=== PATIENT | male | born 1950 | race Caucasian/White ===

== ENCOUNTER 2018-06-13 08:33 | Inpatient (IN) | payer MEDICARE, SELFPAY ==
[2018-05-24 11:20] VITALS: BP 126/89; PULSE 64; RESP 16; TEMP 36.9; O2SAT 97; BMI 32.2
[2018-05-24 12:44] LABS: Absolute Lymphocyte Count 1.11 X10^3/ul (0.83-4.51); Absolute Neutrophil Count 4.2 X10^3/uL (2.0-7.7); Basophil# 0.08 X10^3/uL; Basophil% 1.2 % (0-1); Eosinophil# 0.77 X10^3/uL; Eosinophils% 11.2 % (0-5); Hematocrit 39.9 % (40-54); Hemoglobin 13.6 g/dl (13.0-16.5); Lymphocyte # 1.11 X10^3/ul (4.0); Lymphocyte % 16.2 % (19-41); Mean Corp Hgb Conc 34.1 g/gl (32-36); Mean Corpuscular Hgb 30.8 pg (27.0-32.0); Mean Corpuscular Volume 90.3 fL (80-94); Mean Platelet Vol. 10.6 fl (6.2-12.0); Monocyte# 0.68 X10^3/uL; Monocyte% 9.9 % (0-10); Neutrophil % 61.1 % (47-70); Platelet Count 228 K/mm3 (150-450); RBC Distribution Width CV 13.1 % (11.6-14.6); Red Blood Count 4.42 M/mm3 (4.6-6.2); White Blood Count 6.9 K/mm3 (4.4-11.0)
[2018-05-24 12:50] LABS: POSITIVE COUNT NO; POSITIVE DIFFERENTIAL NO; POSITIVE MORPHOLOGY NO
[2018-05-24 12:59] LABS: Anion Gap 6 (5-15); BUN 16 mg/dL (7-18); Chloride 108 mmol/L (98-107); Creatinine, Serum 0.94 mg/dL (0.70-1.30); EST Glomerular Filtration Rate 85 mL/min (>60); Est Glom Filt Rate - Afr Amer 103 mL/min (>60); Glucose 88 mg/dL (74-106); Potassium 4.4 mmol/L (3.5-5.1); Sodium Level 140 mmol/L (136-145)
--- NOTE | 2018-05-28 07:15 | HP.PCM_ITS ---
History and Physical DATE OF SURGERY: 06/13/2018 SCHEDULED PROCEDURE: Right reverse total shoulder arthroplasty HISTORY OF PRESENT ILLNESS: This is a 68-year-old male who has been having ongoing pain in bilateral shoulders for several years. He states the right is worse than the left. Pain can reach as high as a 9 out of 10. His pain is constant, aching, and sharp. Patient has difficulty with activities of daily living that require anything lifting overhead. Pain is over the anterior lateral aspect of the bilateral shoulders. Patient has tried oral medications consisting of Aleve with minimal symptom relief. After failing conservative measures and discussing all treatment options with Dr. Patrice Rizzo, the patient would like to proceed with a right reverse total shoulder arthroplasty. Patient denies any chest pain , shortness of breath, fevers chills, or recent infections. Surgical clearance has been obtained by primary care physician. REVIEW OF SYSTEMS: ROS: Const: Denies change in appetite, fever and weight change. CV: Denies chest pain, heart murmur and irregular heartbeat. Resp: Denies cough, pneumonia, shortness of breath, tuberculosis and wheezing. GI: Denies constipation, diarrhea, heartburn, nausea, rectal itching, bloody stools and vomiting. : . (F Genital Sx) Denies incontinence. Musculo: Reports leg swelling, but denies pain, trouble walking and weakness. Skin: Denies Raynaud's, history of shingles and tattoo. Neuro: Denies ambulatory dysfunction, dizziness, numbness/tingling and tremor. Psych: Denies anxiety, insomnia and stress. Kash/Lymph: Denies anemia, bleeding/bruising tendency and past transfusion. Reviewed, no changes. PAST MEDICAL HISTORY: Advance Care Plan: No Advance Directives Effective Date: 03/16/2018 PMH: Medical Problems: Arthritis, Gout Accidents: None Surgical Hx: Hernia Repair Anesthesia Complications: None Assistive Devices: Glasses Reviewed, no changes. SOCIAL HISTORY: SH: Marital: .Occupation: Retired.Work Status: Retired.Hand Dominance: Right- handed. Personal Habits: Cigarette Use: Former.Alcohol: Daily.Drug Use: Denies Use.Enjoy Exercising: Never Exercises. Reviewed, no changes. VITALS: Ht: 67 Wt: 197lb Wt k.359 BMI: 30.9 BP: 136/85 Pulse: 70 Resp: 16 T: 98.4 T: 36.9C ALLERGIES: No Known Drug Allergy MEDICATIONS: Multi Vitamin 1po qday, Vitamin C 1000 mg 1po qday, Ibuprofen 200 200 mg prn PRE-OP EXAM: General appearance:NORMAL Other: Eyes: Conjunctivae and lids: NORMAL Pupils: ERR Ears, Nose, Mouth, and Throat: NORMAL Other: Inspection of lips, teeth and gums: NORMAL Other: Neck: Examination of neck: no masses noted. Respiratory: Assessment of respiratory effort: NORMAL Other: Auscultation of lungs: clear to auscultation no wheezes, rhonchi or rales. Cardiovascular: Auscultation of heart: regular rate and rhythm, no murmurs, gallops or rubs. Exam of carotid arteries: NORMAL Other: Gastrointestinal: Exam of abdomen: soft, nontender, nondistended bowel sounds present. PHYSICAL EXAMINATION: Examination of the right shoulder is cool to touch without erythema. Range of motion: Active Forward elevation 95, passive range of motion flexion 100. External rotation 10 on the right and internal rotation to L4 on the right. Patient does have scapular dyskinesia. Supraspinatus strength 3+/5 on right. Internal and external rotation 5/5 right. Sensation is intact to light touch. IMAGING STUDIES: X-rays of bilateral shoulders reveal severe glenohumeral osteoarthritis bilaterally. There are large humeral and glenoid osteophytes bilaterally. There is humeral head flattening bilateral. There is posterior wear of the glenoid bilaterally. IMPRESSION: 1. Severe bilateral shoulder glenohumeral osteoarthritis 2. History of gout PLAN: Dr. Rizzo did discuss and review with the patient all treatment options including surgical versus nonsurgical options. Patient does wish to proceed with the above-stated procedure. Potential risks, benefits, and complications of the procedure were discussed in detail including but not limited to , infection, nerve and blood vessel damage, persistent pain, numbness, tingling, paresthesias, blood clot, pulmonary embolism, and requirement for possible further surgery. The patient expressed full understanding and has no further questions for the doctor. Patient does agree to proceed with the above-stated procedure and has signed the surgery consent form. ___ I have re-examined the patient. There are no clinical changes since date of exam. ___ See progress notes for changes. ___ Dictated on admission Date: Time: Signature:
[2018-06-13] VITALS (10 sets, daily range): BP systolic 101–134; BP diastolic 71–91; PULSE 57–85; RESP 14–16; TEMP 35.8–36.6; O2SAT 93–100; BMI 32.2
--- NOTE | 2018-06-13 07:06 | RAD_ITS ---
STUDY: X-RAY - RIGHT SHOULDER REASON FOR EXAM: Male, 68 years old. Status post right shoulder surgery TECHNIQUE: 1 view(s) of the shoulder. COMPARISON: None. FINDINGS: There is postoperative change from right shoulder total arthroplasty. Components are in normal alignment. No periinstrumentation lucency. Right acromioclavicular joint is in normal alignment demonstrates mild degenerative spurring. Normal acromion. Visualized humerus, clavicle, scapula are otherwise unremarkable Subcutaneous gas is noted in the postoperative bed. Normal visualized right upper ribs and pulmonary apex. RAD/Shoulder One View IMPRESSION: Postoperative change from right total shoulder arthroplasty with no evidence of instrumentation failure. Electronically Signed: Wesley Esqueda MD at 3:57 EDT Tel , Service support ,
[2018-06-13] MEDS: Acetaminophen 500 MG Tablet 1000 MG PO ×3 (09:25→21:08)
[2018-06-13] MEDS: Celecoxib 200 MG Capsule 400 MG PO (09:26)
[2018-06-13] MEDS: oxyCODONE HCl Cr 10 MG Tablet PO (09:27)
[2018-06-13] MEDS: Lactated Ringers 1,000 ML 999 ML IV (10:00)
--- NOTE | 2018-06-13 10:15 | OP.PCM_ITS ---
Report of Operation Date of Procedure: 06/13/18 Pre-Operative Diagnosis: Right shoulder cuff tear arthropathy Post-Operative Diagnosis: Right shoulder cuff tear arthropathy Surgery/Procedure Performed:: Right reverse total shoulder replacement Description of Surgical Findings:: Stable shoulder chemical processing laborer: Geoffrey Zeng Type of Anesthesia:: General/Regional Anesthesiologist: Cem Smith Special Medications: 2 g Ancef, 1 g TXA at incision, 1 g TXA closure, 10 mg Decadron, joint cocktail (5 mg Duramorph, 30 mL of 0.5% Ropivicaine, 1000 units of epinephrine, 30 mg of Toradol) Specimen's removed: Bony cuts Estimated Blood Loss (mL): 200 mL Fluids Replaced: 1500 mL crystalloid Description of Procedure: Components used 1. Equinox 8? posterior glenoid baseplate from [employer] for reverse TSA 2. Equinox 38, +6 mm Glenosphere 3. Equinox 38mm, 0mm humeral liner 4. Equinox reverse TSA humeral adapter tray 0mm 5. Equinox humeral stem preserve press-fit 10mm size Brief history/Operative indications: 68 yo M with history of R shoulder pain and cuff tear arthropathy. Patient failed conservative measures as mentioned in the H&P. After discussion of risk and benefits of reverse total shoulder replacement including but not limited to blood loss, DVTs, PEs, nerve vessel damage, infection, general risk of anesthesia including loss of life, instability and stiffness patient demonstrating understanding wish to proceed was able to sign informed consent. Medical clearance was obtained. Procedure: On the date of the procedure, patient's R upper extremity was marked in the preoperative area. Patient was taken back to the operating room where they were placed on the table in the supine position. Anesthesia assumed control of the C-spine and airway, then administered anesthetic. All bony prominences were identified well-padded, the head was secured and the patient was placed in the beachchair position at about 35? inclination. Anesthesia remained in control of the C-spine airway throughout the remainder of the procedure. Patient was then appropriately fastened to the table and the R upper extremity was prepped in a sterile fashion. The surgeons then scrubbed. Upon reentering the room, the R upper extremity was draped in a sterile fashion and the incision was marked out. Timeout was called, everyone agreed upon the side, the site, the procedure to be performed, patient identity and antibiotics given. Incision was taken down through skin and subcutaneous tissue, fat down to fascia. The stripe of the deltopectoral interval and cephalic vein were identified and blunt dissection was used to retract the deltoid. The cephalic vein was retracted laterally. Clavipectoral fascia was then incised and a cobra retractor was placed in the wound. The proximal one third of the pectoralis major insertion was released. Pectoralis tendon insertion was used to tenodesed the biceps tendon which was identified in the bicipital groove. Tenodesis was done with #1 Vicryl. Proximally we followed the biceps tendon after transecting it into the rotator interval. The rotator interval was split and the arm was externally rotated. The split was 1 cm medial to the bicipital groove. Subscapularis tendon was released. We released down the anterior portion of the humeral head and a warner elevator was used to release the inferior portion of the humeral head. The arm was externally rotated and the shoulder was dislocated. The [employer] humeral head cutting guide was used to make humeral cut. This was done at 20? retroversion. Once his humeral head cut was made humerus was retracted out of the way and the glenoid was exposed. After exposing the glenoid, the labrum and the remaining proximal biceps were debrided. At this time we are able to view the entire outer edge of the glenoid. A central pin was placed we sequentially reamed over this central pin to 38mm. Once this was completed the central pedicle was drilled. The glenoid baseplate was impacted into place. Wound was closely irrigated out with normal saline we then drilled sequentially for 4 screws. Screws were placed superiorly and inferiorly and tightened down the screws. Then anteriorly and posteriorly. Once the screws were appropriately tightened into place the glenoid baseplate was compressed against the exposed subchondral bone. Locking caps were placed and a 38, +6mm glenosphere was impacted into place engaging the De Luna taper. The central screw was then tightened into place. Attention was then turned towards the humerus. The humerus was again externally rotated exposing the proximal portion of the humerus. Central canal finder was then used to open up the canal. We then broached to a 10mm stem. We trialed the 0mm liner, with the 0mm humeral baseplate. We obtained an adequate reduction at this time with a nice stable shoulder. Good internal rotation to the gluteus, forward elevation to 140?, external rotation to 20?. Final components were then assembled on the back table, trials were removed and the wound was copiously irrigated with normal saline after dislocating the shoulder. Once the final components were assembled they were impacted into place. Shoulder was then reduced and found to be stable with good range of motion. Subscapularis tendon was not repairable. The wound was then copiously irrigated out with a 1 L normal saline lavage. The deltopectoral fascia was then closed using #1 Vicryl skin was closed using 2-0 Vicryl interrupted sutures and final skin closure was done with 3-0 Monocryl. Steri-Strips are placed for final skin closure. Sterile dressing was placed patient was then placed in a sling and awakened by anesthesia. Patient was then transferred to the PACU for recovery. Postoperative plan: Patient will be admitted to the hospital overnight. They will get physical therapy starting in 2 weeks with normal postoperative regimen. Patient will be placed on 325 mg aspirin daily for DVT prophylaxis. The first postoperative appointment will be in 2 weeks for wound check and initiation of phase 1 physical therapy. During the course of the procedure the physician assistant softball coach played a vital role. His intimate knowledge of my steps in the procedure aided in safe and expedient completion of the procedure. The PA played a vital rolls in positioning particularly in obtaining the appropriate beach chair position and securing the patient's body and head to the table. The PA was also vital in the retraction of soft tissues during the exposure and especially the glenoid work as this is a vital part of the procedure to prevent neurovascular damage. the PA was also vital and protecting soft tissues during times of bony cuts and reaming. He also played a vital role in closure with my direct supervision. The PA was also important during reduction and dislocation of the joint and trials intraoperatively. Grafts/Implants Used: [employer] Equinox preserve stem - Complications NONE - Admit VTE Documentation VTE Present on Admission: No VTE Mechan Device Prophylaxis: SCD's, Thigh High DAGOBERTO Hose VTE Pharm Prophylaxis ordered?: Yes
[2018-06-13] MEDS: Cefazolin 2 GM in 0.9% Normal Saline 100 ML IV (10:17)
[2018-06-13] MEDS: Ondansetron 4 MG/2 ML Vial (12:02)
[2018-06-13] MEDS: Lactated Ringers 1,000 ML 125 ML IV (18:12)
[2018-06-13] MEDS: Cefazolin 1 GM/50 ML BAG IV (18:21)
[2018-06-14 03:10] VITALS: BP 92/63; PULSE 84; RESP 16; TEMP 36.7; O2SAT 92
[2018-06-14] MEDS: Cefazolin 1 GM/50 ML BAG IV (03:17)
[2018-06-14] MEDS: Lactated Ringers 1,000 ML 125 ML IV (03:17)
[2018-06-14 06:04] VITALS: BP 99/69
[2018-06-14] MEDS: Acetaminophen 500 MG Tablet 1000 MG PO ×2 (06:07→13:53)
--- NOTE | 2018-06-14 07:00 | PN.ORTHO_ITS ---
Subjective: Patient resting in bed upon examination. Patient denies any CP, SOB, dizziness , lightheadedness, or N/V. Patient states pain is controlled on medications. No adverse overnight events. Patient wishes to try and go home today after physical therapy. Objective: VSS, Afebrile Sensation intact to axillary, radial, median, and ulnar nerve. Motor intact to AIN, PIN, and ulnar nerve Dressing with drainage over middle 11/16, no reason to change at this point Ultra sling fitting appropriately - Physical Exam General: Alert, Oriented x3, Cooperative, No apparent distress Vital Signs Temp Pulse Resp BP Pulse Ox 98.1 F 84 16 99/69 92 06/14/18 03:10 06/14/18 03:10 06/14/18 03:10 06/14/18 06:04 06/14/18 03:10 Oxygen Delivery Method Room Air Weight: 99 kg Body Mass Index (BMI) 32.2 Intake and Output for Last 24 Hours 06/12/18 06/13/18 06/14/18 23:59 23:59 23:59 Intake Total 1955 1754 / 175 Balance 1955 175 / 1753 Medical Necessity - Tobacco Use Smoking Status: Former smoker Tobacco Use: Cigarettes Assessment/Plan 1. S/P Right reverse total shoulder arthroplasty POD#1 2. Cont pain medications: oxyir and tylenol 3. DVT prophylaxis: aspirin 325 mg daily for 2 weeks 4. Physical therapy: okay for ROM of the elbow/wrist/hand. Okay for pendulum exercises. No ROM right shoulder. Will begin outpatient physical therapy after 2 weeks post-op visit 5. Encouraged incentive spirometry 6. Disposition: plan is for discharge home today if pain is controlled and tolerated physical therapy. Prescriptions are attached to chart. Patient will follow up per post-op instructions.
--- NOTE | 2018-06-14 07:08 | PCM.DC.ORTHO ---
Discharge Diet: No Restrictions Discharge Activity: May Not Drive May shower in (days): 1 - turn dressing away from water Ice area for (Minutes): 20 - every 1-2 hours while awake Weight Bearing Status: No weight bearing - right upper extremity Keep extremity elevated above heart level: Operative Extremity Call your doctor if your incision/area has: Continuous Slow Oozing, Sudden Increased Bleeding, Increased Pain/ Swelling, Increased Redness, Foul Smelling Discharge Call your doctor if you observe: Fever of 101 or Higher, Coldness, Increased Pain, Numbness or Tingling, Change in Color Remove Dressing in (days):: 4 - okay to remove on 06/18/18 Additional Instructions: follow [facility] post-op instructions Allergies/Adverse Reactions: Allergies No Known Allergies Allergy (Verified 06/13/18 09:01) Medications to take at Discharge Ascorbic Acid [Vitamin C] 500 mg PO DAILY@0800 05/24/18 Multivitamin [Daily Multiple Vitamin] 1 each PO DAILY 05/24/18 Acetaminophen [Tylenol] 1,000 mg PO Q8 #90 tab 06/14/18 Aspirin 325 mg PO DAILY@0800 #14 tab 06/14/18 Famotidine [Pepcid] 20 mg PO DAILY #14 tab 06/14/18 Oxycodone [Oxyir] 5 - 10 mg PO Q4H PRN PRN 5 Days #60 tablet 06/14/18 Senna/Docusate Sodium [Senokot-S] 2 tab PO BID PRN PRN #20 tab 06/14/18 The following prescriptions were given: Oxycodone [Oxyir] 5 - 10 mg PO Q4H PRN PRN 5 Days #60 tablet PRN Reason: Pain Acetaminophen [Tylenol] 1,000 mg PO Q8 #90 tab Aspirin 325 mg PO DAILY@0800 #14 tab Famotidine [Pepcid] 20 mg PO DAILY #14 tab Senna/Docusate Sodium [Senokot-S] 2 tab PO BID PRN PRN #20 tab PRN Reason: Constipation Primary Care Physician: Eugenia Gracia MD [Primary Care Provider] - Test Results: Test results from this visit will be discussed in further detail at your follow-up appointment, if applicable. Please Follow Up With: Geoffrey Zeng PA-C When: 06/26/18 @ 10:00 am Please Follow Up With: Ana Wilburn Physical therapy
[2018-06-14] MEDS: Famotidine 20 MG Tablet PO (08:34)
[2018-06-14] MEDS: Aspirin 325 MG Tablet PO (08:34)
[2018-06-14] MEDS: Multivitamins,Therapeutic Tablet 1 TABLET PO (08:34)
[2018-06-14] MEDS: Ascorbic Acid 500 MG Tablet PO (08:34)
[2018-06-14] MEDS: oxyCODONE 5 MG Tablet PO (08:48)
[2018-06-14 09:10] VITALS: BP 116/75; PULSE 64; RESP 16; TEMP 36.4; O2SAT 96
[2018-06-14 13:56] VITALS: BP 123/71; PULSE 65; RESP 16; TEMP 36.4; O2SAT 98
--- NOTE | 2018-06-15 16:10 | CASEMGMT ---
Late entry for 06/14 1200 RN CM Assessment: [id number] assessment performed. Pt alert, willing and able to participate. Confirmed pt's address, PCP, and pharmacy ([facility] in [place]). Pt states he plans to return home at discharge and will receive assistance from his . He lives in the basement of his daughter's home. There are steps to the basement but there is an outside entrance available that would not require him to use stairs. Pt's daughter is a nurse and will also be available to assist if needed. Pt has outpt PT scheduled at [facility] on 06/26. His will be available to transport him to his follow-up and PT appointments. Pt denies any discharge needs. Plan: Home with assist of family and outpt PT. Melly Vega RN
== END 2018-06-14 14:10 | disposition home or self-care (01) | DRG 483 ==
PROVIDERS: Admitting Provider Specialist; Visit Provider Specialist
PROC: 0RRJ00Z Replacement of Right Shoulder Joint with Reverse Ball and Socket Synthetic Substitute, Open Approach (ICD-10-PCS; CPT 23472; principal; 2018-06-13 10:30)
DX: M19.011 Primary osteoarthritis, right shoulder (principal); M19.012 Primary osteoarthritis, left shoulder; M10.9 Gout, unspecified; Z79.82 Long term (current) use of aspirin; Z87.891 Personal history of nicotine dependence
CPT/HCPCS: 36415; 73020; 80048; 85025; 87081; 97166; 97530; C1776; J7040; J7120; J2405

== ENCOUNTER 2018-09-19 06:15 | Inpatient (IN) | payer MEDICARE, SELFPAY ==
[2018-09-08 11:05] VITALS: BP 116/80; PULSE 60; RESP 16; TEMP 36.6; O2SAT 98; BMI 31.8
[2018-09-08 11:45] LABS: Absolute Lymphocyte Count 0.99 X10^3/ul (0.83-4.51); Absolute Neutrophil Count 3.4 X10^3/uL (2.0-7.7); Basophil# 0.05 X10^3/uL; Basophil% 0.8 % (0-1); Eosinophil# 0.91 X10^3/uL; Eosinophils% 15.4 % (0-5); Hematocrit 40.2 % (40-54); Hemoglobin 13.2 g/dl (13.0-16.5); Lymphocyte # 0.99 X10^3/ul (4.0); Lymphocyte % 16.8 % (19-41); Mean Corp Hgb Conc 32.8 g/gl (32-36); Mean Corpuscular Hgb 29.7 pg (27.0-32.0); Mean Corpuscular Volume 90.3 fL (80-94); Mean Platelet Vol. 10.6 fl (6.2-12.0); Monocyte# 0.57 X10^3/uL; Monocyte% 9.6 % (0-10); Neutrophil # 3.38 X10^3/uL (2.7-7.7); Neutrophil % 57.2 % (47-70); Platelet Count 253 K/mm3 (150-450); RBC Distribution Width CV 13.6 % (11.6-14.6); RBC Distribution Width SD 44.3 fl (35.1-43.9); Red Blood Count 4.45 M/mm3 (4.6-6.2); White Blood Count 5.9 K/mm3 (4.4-11.0)
[2018-09-08 11:47] LABS: POSITIVE COUNT NO; POSITIVE DIFFERENTIAL NO; POSITIVE MORPHOLOGY NO
[2018-09-08 11:53] LABS: Anion Gap 8 (5-15); BUN 13 mg/dL (7-18); BUN/Creat Ratio 14.5 RATIO (10-20); Calcium,Total 9.2 mg/dL (8.5-10.1); Chloride 107 mmol/L (98-107); Creatinine, Serum 0.89 mg/dL (0.70-1.30); EST Glomerular Filtration Rate 90 mL/min (>60); Est Glom Filt Rate - Afr Amer 109 mL/min (>60); Estimated Creatinine Clearance 76.33 ml/min; Glucose 91 mg/dL (74-106); Potassium 4.2 mmol/L (3.5-5.1); Sodium Level 140 mmol/L (136-145)
--- NOTE | 2018-09-11 08:04 | HP.PCM_ITS ---
History and Physical DATE OF SURGERY: 09/19/2018 SCHEDULED PROCEDURE: Left Reverse Total Shoulder Arthroplasty HISTORY OF PRESENT ILLNESS: This is a 68-year-old male who has been having ongoing bilateral shoulder pain for several years duration. Patient recently underwent a right reverse total shoulder arthroplasty on June 13, 2018. He is doing very well with regards to his right shoulder. Patient continues to have pain in his nondominant left shoulder. Pain can reach as high as a 9/10. He has difficult time with activities of daily living that require any overhead activity or lifting. Pain is over the lateral/anterior shoulder. Pain does occasionally wake him at night. He has difficult time and reduced ability with activities of daily living due to his range of motion and pain. Patient has been through formal physical therapy for his right shoulder that he worked on exercises on his left but continues to have pain. She has tried pyfr-[id number] anti-inflammatories without any relief in symptoms. X-rays of the left shoulder reveal severe glenohumeral osteoarthritis. Patient has medical history pertinent for gout. Patient denies any recent chest pain, shortness of breath, fevers chills, recent infections. After failing conservative measures and discussing all treatment options with Dr. Patrice Rizzo, the patient would like to proceed with a left reverse total shoulder arthroplasty. REVIEW OF SYSTEMS: ROS: Const: Denies change in appetite, fever and weight change. CV: Denies chest pain, heart murmur and irregular heartbeat. Resp: Denies cough, pneumonia, shortness of breath, tuberculosis and wheezing. GI: Denies constipation, diarrhea, heartburn, nausea, rectal itching, bloody stools and vomiting. : Denies incontinence. Musculo: Reports leg swelling, but denies pain, trouble walking and weakness. Skin: Denies Raynaud's, history of shingles and tattoo. Neuro: Denies ambulatory dysfunction, dizziness, numbness/tingling and tremor. Psych: Denies anxiety, insomnia and stress. Kash/Lymph: Denies anemia, bleeding/bruising tendency and past transfusion. Reviewed, no changes. PAST MEDICAL HISTORY: Advance Care Plan: No Advance Directives Effective Date: 03/16/2018 PMH: Medical Problems: Arthritis, Gout Accidents: None Surgical Hx: Hernia Repair RT Reverse Total Shoulder - (06/13/2018) [email or web address] Anesthesia Complications: None Assistive Devices: Glasses Reviewed, no changes. SOCIAL HISTORY: SH: Marital: .Occupation: Retired.Work Status: Retired.Hand Dominance: Right- handed. Personal Habits: Cigarette Use: Former.Alcohol: Daily.Drug Use: Denies Use.Enjoy Exercising: Never Exercises. Reviewed, no changes. VITALS: Ht: 67 Wt: 204lb Wt k.534 BMI: 31.9 BP: 132/82 Pulse: 67 Resp: 16 T: 97.7 T: 36.5C ALLERGIES: No Known Drug Allergy MEDICATIONS: Multi Vitamin 1po qday, Vitamin C 1000 mg 1po qday PRE-OP EXAM: General appearance:NORMAL Other: Eyes: Conjunctivae and lids: NORMAL Pupils: ERR Ears, Nose, Mouth, and Throat: NORMAL Other: Inspection of lips, teeth and gums: NORMAL Other: Neck: Examination of neck: no masses noted. Respiratory: Assessment of respiratory effort: NORMAL Other: Auscultation of lungs: clear to auscultation no wheezes, rhonchi or rales. Cardiovascular: Auscultation of heart: regular rate and rhythm, no murmurs, gallops or rubs. Exam of carotid arteries: NORMAL Other: Gastrointestinal: Exam of abdomen: soft, nontender, nondistended bowel sounds present. PHYSICAL EXAMINATION: Left shoulder is cool to touch without erythema. Patient has tenderness to palpation of the anterior/lateral left shoulder. Range of motion left shoulder: Active flexion 80, passive flexion 85, external rotation on the left neutral, internal rotation on the left L4. Patient does have scapular dyskinesia. 4/5 supraspinatus, external rotation 5/5. Sensation intact to light touch. Neurovascularly intact. IMAGING STUDIES: X-rays from March 16, 2018 of the left shoulder reveals severe glenohumeral osteoarthritis. There is large humeral and glenoid osteophytes. There is humeral head flattening. There is significant retroversion on the left. IMPRESSION: 1. Severe left shoulder glenohumeral osteoarthritis 2. Three-month status post right reverse total shoulder arthroplasty 3. Gout PLAN: Dr. Patrice Rizzo did discuss and review with the patient all treatment options including surgical versus nonsurgical options. Patient does wish to proceed with the above-stated procedure. Potential risks, benefits, and complications of the procedure were discussed in detail including but not limited to , infection, nerve and blood vessel damage, persistent pain, numbness, tingling, paresthesias, blood clot, pulmonary embolism, and requirement for possible further surgery. The patient expressed full understanding and has no further questions for the doctor. Patient does agree to proceed with the above-stated procedure and has signed the surgery consent form. This dictation was created using voice recognition software. Phonetic and/or grammatical errors may exist.. ___ I have re-examined the patient. There are no clinical changes since date of exam. ___ See progress notes for changes. ___ Dictated on admission Date: Time: Signature:
[2018-09-19] VITALS (11 sets, daily range): BP systolic 111–143; BP diastolic 76–89; PULSE 57–88; RESP 16–18; TEMP 36.2–37.2; O2SAT 92–99; BMI 31.8
[2018-09-19] MEDS: Celecoxib 200 MG Capsule 400 MG PO (07:09)
[2018-09-19] MEDS: Acetaminophen 500 MG Tablet 1000 MG PO ×3 (07:10→22:07)
[2018-09-19] MEDS: Cefazolin 2 GM in 0.9% Normal Saline 100 ML IV (07:33)
--- NOTE | 2018-09-19 09:09 | OP.PCM_ITS ---
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 Post-Operative Diagnosis: Severe left shoulder osteoarthritis with B2 posterior glenoid wear Surgery/Procedure Performed:: Left reverse total shoulder replacement Description of Surgical Findings:: Stable shoulder dairy bar manager: Geoffrey Zeng Type of Anesthesia:: General Anesthesiologist: Cem Smith Special Medications: 2 g Ancef, 1 g TXA at incision, 1 g TXA closure, 10 mg Decadron, joint cocktail (5 mg Duramorph, 30 mL of 0.5% Ropivicaine, 1000 units of epinephrine, 30 mg of Toradol), 1 g vancomycin IV throughout the case Specimen's removed: Bony cuts Estimated Blood Loss (mL): 200 ml Fluids Replaced: 1700 mL crystalloid Description of Procedure: Components used 1. Equinox a degree glenoid baseplate from [employer] for reverse TSA 2. Equinox 38, +4mm Glenosphere 3. Equinox 38 mm, 0mm humeral liner 4. Equinox reverse TSA humeral adapter tray 0mm 5. Equinox humeral stem preserve press-fit 10mm size Brief history/Operative indications: 68 yo m with history of L shoulder pain and severe osteoarthritis with glenoid B2 wear. Patient failed conservative measures as mentioned in the H&P. After discussion of risk and benefits of reverse total shoulder replacement including but not limited to blood loss, DVTs, PEs, nerve vessel damage, infection, general risk of anesthesia including loss of life, instability and stiffness patient demonstrating understanding wish to proceed was able to sign informed consent. Medical clearance was obtained. Procedure: On the date of the procedure, patient's L upper extremity was marked in the preoperative area. Patient was taken back to the operating room where they were placed on the table in the supine position. Anesthesia assumed control of the C-spine and airway, then administered anesthetic. All bony prominences were identified well-padded, the head was secured and the patient was placed in the beachchair position at about 35? inclination. Anesthesia remained in control of the C-spine airway throughout the remainder of the procedure. Patient was then appropriately fastened to the table and the L upper extremity was prepped in a sterile fashion. The surgeons then scrubbed. Upon reentering the room, the L upper extremity was draped in a sterile fashion and the incision was marked out. Timeout was called, everyone agreed upon the side, the site, the procedure to be performed, patient identity and antibiotics given. Incision was taken down through skin and subcutaneous tissue, fat down to fascia. The stripe of the deltopectoral interval and cephalic vein were identified and blunt dissection was used to retract the deltoid. The cephalic vein was retracted laterally. Clavipectoral fascia was then incised and a cobra retractor was placed in the wound. The proximal one third of the pectoralis major insertion was released. Pectoralis tendon insertion was used to tenodesed the biceps tendon which was identified in the bicipital groove. Tenodesis was done with #1 Vicryl. Proximally we followed the biceps tendon after transecting it into the rotator interval. The rotator interval was split and the arm was externally rotated. The split was 1 cm medial to the bicipital groove. Subscapularis tendon was released. We released down the anterior portion of the humeral head and a warner elevator was used to release the inferior portion of the humeral head. The arm was externally rotated and the shoulder was dislocated. The [employer] humeral head cutting guide was used to make humeral cut. This was done at 20? retroversion. Once his humeral head cut was made humerus was retracted out of the way and the glenoid was exposed. After exposing the glenoid, the labrum and the remaining proximal biceps were debrided. At this time we are able to view the entire outer edge of the glenoid. A central pin was placed we sequentially reamed over this central pin to 38mm. Once this was completed the central pedicle was drilled. The glenoid baseplate was impacted into place. Wound was closely irrigated out with normal saline we then drilled sequentially for 4 screws. Screws were placed superiorly and inferiorly and tightened down the screws. Then anteriorly and posteriorly. Once the screws were appropriately tightened into place the glenoid baseplate was compressed against the exposed subchondral bone. Locking caps were placed and a 38, +4mm glenosphere was impacted into place engaging the De Luna taper. The central screw was then tightened into place. Attention was then turned towards the humerus. The humerus was again externally rotated exposing the proximal portion of the humerus. Central canal finder was then used to open up the canal. We then broached to a 10mm stem. We trialed the 0mm liner, with the 0mm humeral baseplate. We obtained an adequate reduction at this time with a nice stable shoulder. Good internal rotation to the gluteus, forward elevation to 140?, external rotation to 20?. Final components were then assembled on the back table, trials were removed and the wound was copiously irrigated with normal saline after dislocating the shoulder. Once the final components were assembled they were impacted into place. Shoulder was then reduced and found to be stable with good range of motion. Subscapularis tendon was not repairable. The wound was then copiously irrigated out with a 1 L normal saline lavage. The deltopectoral fascia was then closed using #1 Vicryl skin was closed using 2-0 Vicryl interrupted sutures and final skin closure was done with 3-0 Monocryl. Steri-Strips are placed for final skin closure. Sterile dressing was placed patient was then placed in a sling and awakened by anesthesia. Patient was then transferred to the PACU for recovery. Postoperative plan: Patient will be admitted to the hospital overnight. They will get physical therapy starting in 2 weeks with normal postoperative regimen. Patient will be placed on 325 mg aspirin daily for DVT prophylaxis. The first postoperative appointment will be in 2 weeks for wound check and initiation of phase 1 physical therapy. During the course of the procedure the physician customer care assistant played a vital role. His intimate knowledge of my steps in the procedure aided in safe and expedient completion of the procedure. The PA played a vital rolls in positioning par ticularly in obtaining the appropriate beach chair position and securing the patient's body and head to the table. The PA was also vital in the retraction of soft tissues during the exposure and especially the glenoid work as this is a vital part of the procedure to prevent neurovascular damage. the PA was also vital and protecting soft tissues during times of bony cuts and reaming. He also played a vital role in closure with my direct supervision. The PA was also important during reduction and dislocation of the joint and trials intraoperatively. Grafts/Implants Used: [employer] Equinox preserve - Complications None - Admit VTE Documentation VTE Present on Admission: No VTE Mechan Device Prophylaxis: SCD's, Knee High DAGOBERTO Hose VTE Pharm Prophylaxis ordered?: Yes
--- NOTE | 2018-09-19 09:55 | RAD_ITS ---
STUDY: X-RAY - LEFT SHOULDER REASON FOR EXAM: Male, 68 years old. The patient is status post shoulder replacement. TECHNIQUE: Single frontal view(s) of the shoulder. COMPARISON: None. FINDINGS: The patient is status post reverse shoulder replacement. There is good alignment. Postoperative soft tissue changes. RAD/Shoulder One View IMPRESSION: Status post left shoulder replacement. There is good alignment. Postoperative soft tissue changes. Electronically Signed: Bola Morales MD at 11:26 EST Tel [phone], Service support ,
[2018-09-19] MEDS: Lactated Ringers 1,000 ML 125 ML IV ×2 (10:51→20:11)
[2018-09-19] MEDS: Famotidine 20 MG Tablet PO (11:34)
[2018-09-19] MEDS: oxyCODONE 5 MG Tablet PO ×2 (13:48→22:09)
[2018-09-19] MEDS: Cefazolin 1 GM/50 ML BAG IV ×2 (17:11→23:41)
[2018-09-20 02:26] VITALS: BP 110/74; PULSE 84; RESP 16; TEMP 37.2; O2SAT 95
[2018-09-20] MEDS: Acetaminophen 500 MG Tablet 1000 MG PO ×2 (05:57→13:25)
[2018-09-20] MEDS: oxyCODONE 5 MG Tablet PO ×2 (06:00→13:24)
--- NOTE | 2018-09-20 07:00 | PN.ORTHO_ITS ---
Subjective: The patient was sitting in bed upon examination. Patient denies any chest pain, shortness of breath, dizziness, lightheadedness, nausea or vomiting, or calf pain. Pain is controlled on medications. No adverse overnight events. Overall patient is doing well. Plan is for discharge home today. Objective: Dressing is C/D/I Ultra-sling fitting appropriately Sensation intact to axillary, radial, median, and ulnar distribution Motor intact to AIN, PIN, and ulnar nerve - Physical Exam General: Alert, Oriented x3, Cooperative, No apparent distress Vital Signs Temp Pulse Resp BP Pulse Ox 98.9 F 84 16 110/74 95 09/20/18 02:26 09/20/18 02:26 09/20/18 02:26 09/20/18 02:26 09/20/18 02:26 Oxygen Delivery Method Room Air Weight: 92.3 kg Body Mass Index (BMI) 31.8 Intake and Output for Last 24 Hours 09/18/18 09/19/18 09/20/18 23:59 23:59 23:59 Intake Total 4301 / 4301 363 / 363 Output Total 400 / 400 Balance 3901 / 3901 363 / 363 Medical Necessity - Tobacco Use Smoking Status: Former smoker Tobacco Use: Cigarettes Assessment/Plan 1. S/P left reverse total shoulder arthroplasty POD #1 2. Continue Pain Medications: Tylenol and oxycodone 3. DVT Prophylaxis: Aspirin 325 mg daily for 2 weeks postoperatively 4. PT/OT: No range of motion left shoulder, okay to work on elbow/wrist/hand range of motion. Okay for pendulum exercise. Will begin outpatient physical therapy after 2-week follow-up at [facility]. 5. Encouraged Incentive Spirometry 6. Disposition: Plan is for discharge home today. Prescriptions will be E scribed to [facility]. Patient will follow-up per postop instructions..
--- NOTE | 2018-09-20 07:08 | PCM.DC.ORTHO ---
Discharge Diet: No Restrictions Discharge Activity: May Not Drive May shower in (days): 1 - Turned dressing away from water Ice area for (Minutes): 20 - Ice area for 20 minutes each hour while awake Weight Bearing Status: No weight bearing - Left upper extremity Keep extremity elevated above heart level: Operative Extremity Call your doctor if your incision/area has: Continuous Slow Oozing, Sudden Increased Bleeding, Increased Pain/ Swelling, Increased Redness, Foul Smelling Discharge Call your doctor if you observe: Fever of 101 or Higher, Coldness, Increased Pain, Numbness or Tingling, Change in Color Remove Dressing in (days):: 4 - Okay to remove dressing on September 24, 2018 Additional Instructions: Follow [facility] postop instructions Allergies/Adverse Reactions: Allergies No Known Allergies Allergy (Verified 09/08/18 11:02) Medications to take at Discharge Ascorbic Acid [Vitamin C] 500 mg PO DAILY@0800 05/24/18 Multivitamin [Daily Multiple Vitamin] 1 each PO DAILY 05/24/18 Acetaminophen [Tylenol] 1,000 mg PO Q8 #90 tablet 09/20/18 Aspirin 325 mg PO DAILY@0800 #14 tablet 09/20/18 Famotidine [Pepcid] 20 mg PO DAILY #14 tablet 09/20/18 Meloxicam [Mobic] 7.5 mg PO BID #30 tablet 09/20/18 Oxycodone [Oxyir] 5 - 10 mg PO Q4H PRN PRN 5 Days #60 tablet 09/20/18 Senna/Docusate Sodium [Senokot-S] 2 tablet PO BID PRN PRN #20 tablet 09/20/18 The following prescriptions were given: Oxycodone [Oxyir] 5 - 10 mg PO Q4H PRN PRN 5 Days #60 tablet PRN Reason: Pain Acetaminophen [Tylenol] 1,000 mg PO Q8 #90 tablet Aspirin 325 mg PO DAILY@0800 #14 tablet Famotidine [Pepcid] 20 mg PO DAILY #14 tablet Senna/Docusate Sodium [Senokot-S] 2 tablet PO BID PRN PRN #20 tablet PRN Reason: Constipation Meloxicam [Mobic] 7.5 mg PO BID #30 tablet Primary Care Physician: Eugenia Gracia MD [Primary Care Provider] - Test Results: Test results from this visit will be discussed in further detail at your follow-up appointment, if applicable. Please Follow Up With: Geoffrey Zeng PA-C When: 10/02/18 @ 2:30 am
[2018-09-20 07:18] VITALS: BP 117/72; PULSE 72; RESP 18; TEMP 37; O2SAT 94
[2018-09-20 07:20] VITALS: PULSE 70
[2018-09-20] MEDS: Aspirin 325 MG Tablet PO (07:29)
[2018-09-20] MEDS: Meloxicam 7.5 MG Tablet PO (07:29)
[2018-09-20] MEDS: Famotidine 20 MG Tablet PO (07:30)
[2018-09-20] MEDS: Ascorbic Acid 500 MG Tablet PO (07:30)
[2018-09-20] MEDS: Multivitamins,Therapeutic Tablet 1 TABLET PO (07:30)
--- NOTE | 2018-09-20 11:10 | CASEMGMT ---
[facility] Face to Face with patient for initial transition planning/care coordination assessment. RN CM introduced self and role at [facility]. Patient lying in bed, alert and oriented. Patient willing to participate in assessment and is able to answer all questions appropriately. Care providers, pharmacy, and demographics verified. Patient wishes to discharge home denies needs at this time. Patient states he has no further needs or concerns at this time. CM to follow for discharge planning needs that may arise. Disposition Plan: Patient to discharge home with family support and follow-up plans in place. Annmarie ROGERS, RN, CM
== END 2018-09-20 13:59 | disposition home or self-care (01) | DRG 483 ==
PROVIDERS: Admitting Provider Specialist; Referring Provider Specialist; Visit Provider Specialist
PROC: 0RRK00Z Replacement of Left Shoulder Joint with Reverse Ball and Socket Synthetic Substitute, Open Approach (ICD-10-PCS; CPT 23472; principal; 2018-09-19 07:30)
DX: M19.012 Primary osteoarthritis, left shoulder (principal); M10.9 Gout, unspecified; Z96.611 Presence of right artificial shoulder joint
CPT/HCPCS: 73020; 80048; 85025; 87081; 97165; C1776; J7040; J7120; J2405

== ENCOUNTER → 2024-10-19 | Outpatient (CLI) | payer MEDICARE, SELFPAY ==
--- NOTE | 2024-10-18 14:09 | FLU_PTH ---
PATIENT: BRIANA CASTRO LOC: [facility] #:[id number] AGE/SX: 74/M ROOM: RE10/19/[address]: Dr. Tyler Miles MD : 1950 BED: DIS: 10/19/2024 SPEC #: [id number] RECD: 10/19/24 09:34 STATUS: DANITA REMarianne #: [id number] ISRRAEL: 10/18/24 14:[address]: Tyler Miles DEPT: CYTOLOGY RECD BY: Tammy Mcneil ENTERED: 10/19/24 09:37 SP TYPE: Fluid OTHR DR: INEZ Daniel Tissues: A - Thyroid gland, NOS B - Thyroid gland, NOS C - Thyroid gland, NOS D - Thyroid gland, NOS Procedures: Special Stain Group II Surgery Specimen Level IV Cytospin Fluid Cytology Other HEADER OPERATION: Fine needle aspiration of thyroid nodule PRE-OP DIAGNOSIS: Thyroid nodule TISSUE SUBMITTED: A- Right thyroid nodule fluid, B- Right thyroid slides, C- Cyst fluid, D- Cyst fluid DIAGNOSIS CYTOLOGY A. Fine needle aspiration, right thyroid nodule fluid (cytospins and cellblock): Negative for malignant cells. See comment. B. Fine needle aspiration, right thyroid nodule (smears): Adequate for evaluation. Atypia of undetermined significance ([place] Category III). See comment. C. Cyst fluid, not further specified (cytospins and cellblock): Negative for malignant cells. See comment. D. Cyst fluid, not further specified (cytospins and cellblock): Negative for malignant cells. See comment. 10/22/2024 COMMENT A. The specimen is virtually acellular. Per recommendations and a clinician-approved plan (a call was made to the referring doctor about the recommendation), genomic testing (Afirma) has been submitted. Results will be reported as an addendum and faxed to clinician. B. The [place] System for thyroid diagnostic categorization was used in the evaluation of this case. C, D. The specimen primarily contains blood. Clinical correlation is suggested. CYTOLOGY STUDY Slides are reviewed. CYTOLOGY GROSS A. Received is 45 ml of red-cloudy fluid labeled with the patient's name and and designated per the requisition as Right thyroid fluid. Submitted for cytology preparation including cell block. B. Received are 4 smears labeled with the patient's name and designated per the requisition as Right thyroid. Submitted for staining. C. Received is 20 ml of yellow-cloudy fluid labeled with the patient's name and and designated per the requisition as Cyst. Submitted for cytology preparation including cell block. D. Received is 4 ml of yellow-cloudy fluid labeled with the patient's name and and designated per the requisition as Cyst. Submitted for cytology preparation including cell block. 10/19/2024 TC:? CPT: 38010m2, 44356d2, 38556h8 ADDENDUM ADDENDUM ADDENDUM ADDENDUM ADDENDUM ADDENDUM ADDENDUM ADDENDUM ADDENDUM 11/06/2024 11:53 ADDENDUM 11/06/2024 11:53 ADDENDUM 11/06/2024 11:53 ADDENDUM 11/06/2024 11:53 ADDENDUM 11/06/2024 11:53 AFIRMA RESULTS REPORT RESULTS INTERPRETATION: The result of this 3.9 cm [place] III nodule A is Afirma GSC Suspicious which suggests a risk of cancer of approximately 50%. The Risk of Malignancy of a GSC Suspicious Afirma XA negative sample remains approximately 50%. Clinical correlation and surgical resection should be considered. Please see complete report in e-chart or EMR
--- NOTE | 2024-11-15 10:40 | FLU_PTH ---
PATIENT: BRIANA CASTRO LOC: [facility] #:[id number] AGE/SX: 74/M ROOM: RE10/19/[address]: Dr. Tyler Miles MD : 1950 BED: DIS: 10/19/2024 SPEC #: [id number] RECD: 11/15/24 14:03 STATUS: DANITA ABDIAS #: [id number] ISRRAEL: 11/15/24 10:[address]: Tyler Miles DEPT: CYTOLOGY RECD BY: Tammy Mcneil ENTERED: 11/16/24 09:34 SP TYPE: Fluid OTHR DR: INEZ Daniel Tissues: A - Thyroid gland, NOS B - Thyroid gland, NOS Procedures: Special Stain Group II Surgery Specimen Level IV Cytospin Fluid Cytology Other HEADER OPERATION: Left thyroid fine needle aspiration PRE-OP DIAGNOSIS: Left thyroid nodule TISSUE SUBMITTED: A- Left thyroid nodule fluid, B- Left thyroid slides DIAGNOSIS CYTOLOGY A. Left thyroid nodule, fine needle aspiration (cytospins and cellblock): Consistent with benign follicular nodule, [place] Category II. Adequate for evaluation. B. Left thyroid nodule, fine needle aspiration (smears): Consistent with benign follicular nodule, [place] Category II. Adequate for evaluation. See comment. [email or web address] 11/19/2024 COMMENT B. Evaluation is focally limited due to obscuring blood. Correlation with clinical, radiologic findings and appropriate follow up are necessary. Please also make reference to previous specimen [id number], right thyroid nodule, fine needle aspiration with diagnosis of atypia of undetermined significance. The [place] System for thyroid diagnostic categorization was used in the evaluation of this case. CYTOLOGY STUDY Slides are reviewed. CYTOLOGY GROSS A. Received is 50 ml of red cloudy fluid labeled with the patient's name and and designated per the requisition as Left thyroid nodule. Submitted for cytology preparation including cell block. B. Received are 4 smears labeled with the patient's name and designated per the requisition as Left thyroid. Submitted for staining. Mr 11/16/2024 TC:5 CPT: 78566s0,01888
== END | disposition home or self-care (01) ==
PROVIDERS: PCP Physician Assistant; Referring Provider Surgery; Visit Provider Surgery
DX: E04.1 Nontoxic single thyroid nodule (principal)
CPT/HCPCS: 88108; 88161; 88305; 88313

== ENCOUNTER → 2024-11-15 | Outpatient (CLI) | payer MEDICARE, SELFPAY | END | disposition home or self-care (01) | LOC: LABSPEC 14:23 | PROVIDERS: PCP Physician Assistant; Referring Provider Surgery; Visit Provider Surgery | DX: E04.1 Nontoxic single thyroid nodule (principal) ==

== ENCOUNTER 2024-12-11 09:25 | Day surgery (SDC) | payer MEDICARE, SELFPAY ==
--- NOTE | 2024-11-29 11:57 | PAT.ANESEVAL ---
Pre-Assessment Diagnosis/Proposed Procedure Planned Operative Procedure(s): (R) Right thyroid lobectomy & isthmus w/IONM Anesthesia History Anesthesia History - financial reporting director: Anesthesia History - financial reporting director Hx Hospitalization No 11/29/24 09:32 Any Problems With Anesthesia No 11/29/24 09:32 Cholinesterase deficiency No 11/29/24 09:32 You/Your Family Experience No 11/29/24 09:32 fever (hyperthermia) with Relationship Recent Exposure to Contagious No 09/19/18 06:54 Disease Does patient have nerve No 11/29/24 09:32 stimulator Patient instructed to have device shut off --Does patient have Pacemaker or ICD? When Was Last Pacemaker Check QUESTION #4 FULL TEXT: You/Your Family Experience fever (hyperthermia) with Anesthesia Last Oral Intake Last Oral intake: Last Oral Intake NPO since Meds taken in AM with sips of water? Meds patient instructed to take am of surgery PONV PONV - financial reporting director: PONV - financial reporting director Female No 11/29/24 09:32 HX of Motion Sickness No 11/29/24 09:32 HX of N/V After Surgery No 11/29/24 09:32 Non-Smoker Yes 11/29/24 09:32 Duration of Surgery greater Yes 11/29/24 09:32 than 60 minutes Number of Risk Factors 2 11/29/24 09:32 PONV Score Moderate Risk 11/29/24 09:32 Height & Weight Height & Weight: Anesthesia: Height & Weight Height 5 ft 7 in 10/18/24 13:09 Respiratory Assessment Respiratory Assessment - financial reporting director: Respiratory Tract Infection Hx - financial reporting director Hx Respiratory Tract Infection No 11/29/24 09:32 STOP Sleep Apnea STOP Sleep Apnea - financial reporting director: STOP Sleep Apnea - financial reporting director Hx Hypertension No 11/29/24 09:32 Hx Sleep Apnea Yes 11/29/24 09:32 CPAP Yes 11/29/24 09:32 BIPAP No 11/29/24 09:32 Do you snore loudly (louder than talking or can be heard Do you often feel tired/ fatigued/ sleepy during daytime? Has anyone observed you stop breathing during sleep? STOP Results Positive 11/29/24 09:32 QUESTION #5 FULL TEXT : Do you snore loudly (louder than talking or can be heard through closed doors)? Tobacco Use History Tobacco Use History - financial reporting director: Tobacco Use History - financial reporting director Tobacco Use Smoking Status Former smoker 11/29/24 09:32 Hx Tobacco Use No 11/29/24 09:32 Years Smoking Packs Smoked per Day Smoking Cessation Date was No - quit smoking greater 11/29/24 09:32 within the last 15 years than 15 years ago Hx Smoking Cessation Date 11/14/75 11/29/24 09:32 Hx Smoking Cessation Counseling Hematologic Medial History Hematologic Hx - financial reporting director: Hematologic Medical Hx - insurance adjuster Hx of Blood Transfusion No 11/29/24 09:32 Hx of Transfusion in last 3 No 11/29/24 09:32 Months Date of Last Transfusion (if within last 3 months) Ever experience any problems No 11/29/24 09:32 with transfusion(s)? Specify any problems Hx of Preganancy in last 3 N/A 11/29/24 09:32 Months Nurse Filling Out Transfusion NBUCHER 11/29/24 09:32 & Questions: Date: 11/29/24 11/29/24 09:32 Time: 09:34 11/29/24 09:32 Patient unable to answer at this time (ie. confused, unrespo /Reproduction History /Reproductive History - financial reporting director: /Reproductive Hx- financial reporting director Hx Now No 11/29/24 09:32 Gestational Age (in weeks): EDC: Hx Hx Para Hx Section SAB No 11/29/24 09:32 [facility] Medical History (Updated 11/29/24 @ 10:58 by Myra Atwood) Wears hearing aid Loss of hearing Thyroid disease History of echocardiogram Cardiology follow-up encounter Gout Arthritis Shortness of breath Sleep apnea Thyroid nodule Home Medications ?Medication ?Instructions ?Recorded ?Last Taken ?Type allopurinol 300 mg tablet 300 mg PO QDAY 10/18/24 Unknown History aspirin 81 mg tablet,delayed 81 mg PO QDAY 10/18/24 Unknown History release sacubitril 24 mg-valsartan 26 mg 1 tab PO BID 10/18/24 Unknown History tablet (Entresto) Allergy/AdvReac Type Severity Reaction Status Date / Time No Known Allergies Allergy Verified 11/29/24 09:30 Family History (Updated 10/18/24 @ 13:09 by Lola Asencio LPN) Daughter Thyroid disorder Sister Thyroid disorder Surgical History History of esophagogastroduodenoscopy (EGD) History of colonoscopy History of esophageal surgery History of right shoulder replacement History of left shoulder replacement Social History (Updated 10/18/24 @ 13:13 by Lola Asencio LPN) Smoking Status: Former smoker alcohol intake: current substance use type: does not use Audit: Pertinent Findings Pertinent Findings Echo (EF%) pertinent findings: 03/30/2024 EF 50% mild LVH Consult pertinent findings: [facility] 03/27/2024 cardiomyopathy EF 45% recheck echo and sleep apnea on CPAP Recommendation Anesthesia Recommendation Anesthesia recommendation: OPTIMIZED for anesthesia
--- NOTE | 2024-12-06 10:52 | EKG12_ITS ---
Test Reason : PRE OP Blood Pressure : */* mmHG Vent. Rate : 63 BPM Atrial Rate : 63 BPM P-R Int : 130 ms QRS Dur : 94 ms QT Int : 396 ms P-R-T Axes : -4 73 20 degrees QTcB Int : 405 ms Normal sinus rhythm Normal ECG Confirmed by ROSANNE RAGLAND, JENNI ([id number]), assistant film editor HENRY GOMEZ ([id number]) on 12/10/2024 10:21:51 AM Referred By: Tyler Miles Confirmed By: JENNI LAY MD
[2024-12-06 11:41] LABS: Hematocrit 37.9 % (40-54); Hemoglobin 12.3 g/dL (13.0-16.5); Mean Corp Hgb Conc 32.5 g/dL (32-36); Mean Corpuscular Hgb 30.6 pg (27.0-32.0); Mean Corpuscular Volume 94.3 fL (80-94); Mean Platelet Vol. 10.5 fl (6.2-12.0); Platelet Count 231 K/mm3 (150-450); RBC Distribution Width CV 13.6 % (11.6-14.6); RBC Distribution Width SD 46.7 fl (35.1-43.9); Red Blood Count 4.02 M/mm3 (4.6-6.2); White Blood Count 6.7 K/mm3 (4.4-11.0)
[2024-12-06 12:15] LABS: Anion Gap 5 (5-15); BUN 18 mg/dL (7-18); BUN/Creat Ratio 21.6 RATIO (10-20); Calcium,Total 9.4 mg/dL (8.5-10.1); Chloride 108 mmol/L (98-107); Creatinine, Serum 0.83 mg/dL (0.70-1.30); EST Glomerular Filtration Rate 96 mL/min (>60); Est Glom Filt Rate - Afr Amer 116 mL/min (>60); Glucose 71 mg/dL (74-106); Potassium 4.2 mmol/L (3.5-5.1); Sodium Level 140 mmol/L (136-145)
[2024-12-11] VITALS (12 sets, daily range): BP systolic 99–130; BP diastolic 67–97; PULSE 72–108; RESP 14–16; TEMP 36.2–38.2; O2SAT 92–100; BMI 31.7
[2024-12-11] MEDS: 0.9% Normal Saline (1000mL) 1,000 ML 15 ML IV (10:05)
--- NOTE | 2024-12-11 10:45 | PCM.PRE.AN2 ---
ASA Classification* ASA Classification ASA Classification: 3 Assessment & Plan Anesthesia* Anesthesia Assessment Anesthesia Assessment: Discussed sedation and/or anesthesia options, risks, benefits, and alternatives with patient/parents/legal guardian/POA. Questions invited. The patient/parents/legal guardian/POA seems to understand and agrees to proceed with anesthesia plan. Reviewed the physical assessment, medical history, allergy history and patient home medications list prior to surgery/procedure/anesthetic and documented any changes. Performed airway and anesthesia risk assessments. Anesthesia Type Anesthesia Type: General History Source History Obtained from:: Patient and Chart Anesthesia Focused Assessment* Temperature: 97.6 F Pulse Rate: 72 Blood Pressure: 115/86 Respiratory Rate: 16 Pulse Ox: 100 Oxygen Delivery Method: Room Air Airway Assessment Mouth opens: >3 cm Mallampati Score: II Teeth Condition: Missing (Multiple missing molars. Rest of the teeth are tight.) Neck Range of motion (ROM): Full ROM Focused Labs Anesthesia Preop lab: CBC WBC 6.7 K/mm3 (4.4-11.0) 12/06/24 11:08 RBC 4.02 M/mm3 (4.6-6.2) L 12/06/24 11:08 Hgb 12.3 g/dL (13.0-16.5) L 12/06/24 11:08 Hct 37.9 % (40-54) L 12/06/24 11:08 Plt Count 231 K/mm3 (150-450) 12/06/24 11:08 CHEMISTRY Potassium 4.2 mmol/L (3.5-5.1) 12/06/24 11:08 Sodium 140 mmol/L (136-145) 12/06/24 11:08 BUN 18 mg/dL (7-18) 12/06/24 11:08 Creatinine 0.83 mg/dL (0.70-1.30) 12/06/24 11:08 Glucose 71 mg/dL (74-106) L 12/06/24 11:08 TSH 2.100 uIU/mL (0.358-3.740) 12/06/24 11:08 COAG Pre-Assessment Diagnosis/Proposed Procedure Planned Operative Procedure(s): (R) Right thyroid lobectomy & isthmus w/IONM Anesthesia History Anesthesia History - caustic room attendant: Anesthesia History - caustic room attendant Hx Hospitalization No 11/29/24 09:32 Any Problems With Anesthesia No 11/29/24 09:32 Cholinesterase deficiency No 11/29/24 09:32 You/Your Family Experience No 11/29/24 09:32 fever (hyperthermia) with Relationship Recent Exposure to Contagious No 12/11/24 09:56 Disease Does patient have nerve No 11/29/24 09:32 stimulator Patient instructed to have device shut off --Does patient have Pacemaker No 12/11/24 09:56 or ICD? When Was Last Pacemaker Check QUESTION #4 FULL TEXT: You/Your Family Experience fever (hyperthermia) with Anesthesia Last Oral Intake Last Oral intake: Last Oral Intake NPO since 19:00 12/11/24 09:56 Meds taken in AM with sips of No 12/11/24 09:56 water? Meds patient instructed to take am of surgery PONV PONV - caustic room attendant: PONV - caustic room attendant Female No 11/29/24 09:32 HX of Motion Sickness No 11/29/24 09:32 HX of N/V After Surgery No 11/29/24 09:32 Non-Smoker Yes 11/29/24 09:32 Duration of Surgery greater Yes 11/29/24 09:32 than 60 minutes Number of Risk Factors 2 11/29/24 09:32 PONV Score Moderate Risk 11/29/24 09:32 Height & Weight Height & Weight: Anesthesia: Height & Weight Height 5 ft 7 in 12/11/24 09:56 Weight: 92 kg 12/11/24 09:56 Body Mass Index (BMI) 31.7 12/11/24 09:56 Respiratory Assessment Respiratory Assessment - caustic room attendant: Respiratory Tract Infection Hx - caustic room attendant Hx Respiratory Tract Infection No 11/29/24 09:32 Any additional information?: Yes Hx Respiratory Tract Infection: Yes (Had cold 2 weeks ago. Took a Z-Carlos Manuel with resolution of symptoms.) STOP Sleep Apnea STOP Sleep Apnea - caustic room attendant: STOP Sleep Apnea - caustic room attendant Hx Hypertension No 11/29/24 09:32 Hx Sleep Apnea Yes 11/29/24 09:32 CPAP Yes 11/29/24 09:32 BIPAP No 11/29/24 09:32 Do you snore loudly (louder than talking or can be heard Do you often feel tired/ fatigued/ sleepy during daytime? Has anyone observed you stop breathing during sleep? STOP Results Positive 11/29/24 09:32 QUESTION #5 FULL TEXT : Do you snore loudly (louder than talking or can be heard through closed doors)? 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 Specify any problems Hx of Preganancy in last 3 N/A 11/29/24 09:32 Months Nurse Filling Out Transfusion NBUCHER 11/29/24 09:32 & Questions: Date: 11/29/24 11/29/24 09:32 Time: 09:34 11/29/24 09:32 Patient unable to answer at this time (ie. confused, unrespo /Reproduction History /Reproductive History - caustic room attendant: /Reproductive Hx- caustic room attendant Hx Now No 11/29/24 09:32 Gestational Age (in weeks): EDC: Hx Hx Para Hx Section SAB No 11/29/24 09:32 Active Medications Active Medications: Current Medications Generic Name Dose Route Start Last Admin Trade Name Freq PRN Reason Stop Dose Admin Sodium Chloride 1,000 mls @ 15 mls/hr 12/11/24 09:40 12/11/24 10:05 IV 12/16/24 22:59 15 mls/hr .Q48H ERICK Administration Protocol [facility] Medical History Wears hearing aid Loss of hearing Thyroid disease History of echocardiogram Cardiology follow-up encounter Gout Arthritis Shortness of breath Sleep apnea Thyroid nodule Home Medications ?Medication ?Instructions ?Recorded ?Last Taken ?Type allopurinol 300 mg tablet 300 mg PO QDAY 10/18/24 12/10/24 History aspirin 81 mg tablet,delayed 81 mg PO QDAY 10/18/24 12/06/24 History release sacubitril 24 mg-valsartan 26 mg 1 tab PO BID 10/18/24 12/10/24 History tablet (Entresto) Allergy/AdvReac Type Severity Reaction Status Date / Time No Known Allergies Allergy Verified 12/11/24 09:54 Family History Daughter Thyroid disorder Sister Thyroid disorder Surgical History History of esophagogastroduodenoscopy (EGD) History of colonoscopy History of esophageal surgery History of right shoulder replacement History of left shoulder replacement Social History Smoking Status: Former smoker alcohol intake: current substance use type: does not use Review of Systems (Anesthesia) ROS Narrative System reviewed and no additional complaints, except as documented.
--- NOTE | 2024-12-11 11:00 | THYROID_PTH ---
PATIENT: BRIANA CASTRO [place] [facility] [place][id number] AGE/SX: 74/M ROOM: RE12/11/[address]: Dr. 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 See comment. 01/02/2025 COMMENT The specimen is sent to [facility] and from there it was sent to [facility] for expert opinion and reviewed by Dr. Mariana Luna and the above diagnosis is rendered. Dr. Gibbs also commented the lesion is thinly encapsulated throughout with extensive cystic change. The rim of peripheral tissue is composed of a uniform population of onocytic cells with moderate amount of eosinophilic granular cytoplasm and round to oval nuclei with prominent nucleoli. Although there is patchy nuclear atypia including chromatin clearing and nuclear membranes irregularity, nuclear enlargement, and nuclear elongation, I believe this atypia falls within the spectrum of changes acceptable in onocytic lesions and is not sufficient for a diagnosis of papillary carcinoma. The complete report is viewable in the patient's EMR. This case has been reviewed in consultation with Dr. Piña who concurs with the above diagnosis. IDC:PW MICROSCOPIC DESCRIPTION Slides are reviewed. GROSS DESCRIPTION Received in fixative is one container labeled with the patient's name and designated Right thyroid lobe and isthmus. The specimen is oriented by and reviewed along with Dr. Miles. The specimen consists of a thyroid lobectomy specimen weighing 27.9gm. Thyroid lobe measures 5.5 x 5 x 3.5cm and isthmus measures 1.5 x 1.5 x 0.5cm. The specimen is inked as follows: posterior surface right lobe and isthmus- black, anterior surface right lobe and isthmus- blue, isthmic resection margin -yellow. Serial sections reveal a cystic mass filled with brownish-hemorrhagic fluid occupying ~90% of the specimen measuring 5.3 x 4 x 3cm. The entire specimen is submitted in fourteen cassettes as follows: 1- isthmus, 2-14- right thyroid lobe. Cassette 2 containing most of the superior portion and cassette 14 containing most inferior portion. SJ.mr 12/14/2024 TC:1 CPT:56653
--- NOTE | 2024-12-11 11:35 | PCM.HP.BLA ---
History and Physical Date of Admission: 12/11/24 HPI HPI HPI: Patient is a 74-year-old male who established with me for finding of thyroid nodule during consultation visit on 10/18/2024. At that time he underwent biopsy of right-sided thyroid nodule that returned with a [place] 3 cytopathology designation and was furthered on 2 genomic testing with [facility] which ultimately rendered a suspicious result. This information was communicated to him via telephone prior to today's visit but he arrives today with his to discuss surgical options. He shares today that he has generally been in the same state of health but does acknowledge a scratchy throat which she believes is related to a mild upper respiratory tract infection as he is experiencing some drainage. When asked about any changes following his biopsy (accompanied by aspiration of 14 mL of cystic fluid he denies noting any significant difference). Below is recapitulated from patient's prior visit for ease of review: Patient is a 74-year-old male who presents for surgical consultation related to a newly discovered right-sided thyroid nodule. They are referred for surgical consultation from INEZ Van. This was discovered incidentally during a cardiac workup. Mr. Judge confirms that originally this area was described as a cyst and it was recommended that he just follow-up with imaging but when repeat imaging suggested that there may be an increase in size and the change in consistency he decided to have it further evaluated. He presents to today's visit with his spouse. They do not experience difficulty with swallowing. They do not complain of a new cough. They do not appreciate new voice changes. They do have a history of shortness of breath and snoring/sleep apnea. Additionally, their weight has been generally stable and they do not have a history of weight gain/loss or an inability to lose despite intentional effort. There is no history of recent fatigue. They do have a history of mild cold intolerance. Other symptoms include: No irregular bowel habits, no history of palpitations. They do have a family history of thyroid disorders and shared that their daughter underwent a diagnostic thyroid lobectomy that ended up being benign by pathology as well as a sister who is treated for hypothyroidism. There is no history of prior radiation exposure. Previous work-up has included thyroid ultrasound. This study was performed on 09/24/2024 and showed a right thyroid lobe measuring 5.6 x 3.4 x 3.1 cm. Within this lobe radiology identified a complicated nodule measuring 3.1 x 3.4 x 3.9 cm and described as being juxtaposed with a nodule measuring 0.9 x 0.5 cm with bright echoes at the periphery consistent with calcifications for an overall TI-RADS rating of 4. The left thyroid lobe measured 4.4 x 1.9 x 1.9 cm. Within this lobe radiology identified a nodule measuring 0.7 x 0.6 x 0.7 cm with a TI-RADS 4 appearance. An FNA has not been performed. Other tests include: TSH: 2.48 (05/25/2024) ROS General General: No weight change, appetite, fatigue, colon cancer, breast cancer or weakness HEENT HEENT: No difficulty swallowing, eye injury, eye surgery, swollen glands or hoarseness Endo Endocrine: No thyroid disease, diabetes mellitus, thyroid cancer, Hair loss, heat intolerance or cold intolerance Skin Skin: No rash or changing moles Musc Musculoskeletal: Yes arthritis and gout; No back problems, rheumatoid arthritis or joint pain Cardio Cardiovascular: No murmur, pacemaker, heart disease, atrial fibrillation, high blood pressure, heart attack, heart stent, palpitations, shortness of breat with exertion or chest pain Psych Psychiatric: No depression, anxiety or hearing voices Resp Respiratory: Yes shortness of breath, Yes sleep apnea, No cough, No COPD, No asthma, No emphysema and No wheezing Gastro Gastrointestinal: No abdominal pain, No nausea or vomiting, No diarrhea, No constipation, No blood in stool, Yes acid reflux, No hemorrhoids, No ulcers, No gallbladder problem and No black,tarry stools Kash Hematologic: Yes blood thinners, No blood disorders, No bleeding, No anemia and No blood clots Additional Details: baby aspirin Neuro Neurologic: No tingling and No weakness Exam Const General: cooperative, comfortable and no acute distress Orientation: alert, awake and oriented x3 Neck Other: Patient's neck is well-healed but when ultrasound exam is applied to his neck identify reaccumulation of his right thyroid cyst which now measures 3.1 x 2.8 x 3.6 cm. On the left identified inferior pole nodule measuring 0.6 x 0.5 x 0.6 cm that is hypoechoic and solid in composition. Office Procedures Fine Needle Aspiration Provider Documentation Details: Indication: Left thyroid nodule After obtaining patient consent and conducting a timeout amongst those present, the procedure was commenced by locating the suspicious nodule in the inferior pole of the left thyroid lobe using ultrasound. Superficially, the skin was cleaned with an alcohol swab and a wheal of local anesthetic was created after instilling 5 ml 1% lidocaine. Then, under ultrasound guidance, multiple passes were made into the thyroid nodule using a 25-gauge needle. Once an adequate specimen was detected within the hub of the needle and bottom of the syringe, this was handed off the field. A second pass was made in a similar manner using a 22-gauge needle. This specimen, also, was passed off the field for cytopathologic evaluation. A third pass was made with a second 22-gauge needle for Afirma/genomic sequencing banking should patient have an atypical cytopathology result. External pressure was applied to the neck to assist with hemostasis. A quick examination was made with ultrasound to exclude any evidence of hematoma formation. Then the surface of the neck was cleaned, dried, and a bandage was applied. Patient was gradually returned to the sitting position and after short period of monitoring was dismissed. Wound care instructions and expectations regarding pathologic processing were discussed prior to dismissal. Complications: None Estimated blood loss: 1 ml Alert Global Coordinator Alert Billing: Yes FNA [id number] Thyroid Assessment and Plan Assessment and Plan (1) Thyroid nodule: Status: Acute Comment: Patient is a 74-year-old male, euthyroid from an endocrine standpoint, who presents for surgical consultation related to a right-sided thyroid nodule that was incidentally discovered. He denies compressive symptomology. The majority of our visit consisted of discussing the cyst prevalence of thyroid nodularity and outlining Mr. Judge past workup and how it relates to triage of thyroid nodule/suspicion for harboring a cancer. It was clear through our discussion that patient and his have been made to believe that the thyroid nodule had increased in size and was rather suspicious. However, I shared with them that my review of the index imaging found a oil burner journeyman error from radiology that the nodule actually measured 2.4 rather than 3.4 cm and 1 of its dimensions and when this consideration was made I used the AILYN change in thyroid nodule volume calculator to arrive at a 43% volumetric decrease [id number]. Moreover, when I performed FNA biopsy of patient's thyroid nodule I found it to be largely cystic in composition and was able to aspirate 14 mL of clear cyst fluid prior to proceeding with the biopsy. I shared that this normally signifies a benign result but did urge the Analilia to await final pathology. Lastly, I discussed that even in the setting of a benign result thyroid cyst can recur and can be grounds for either repeat aspiration or simply proceeding with thyroid lobectomy. Update 11/15/2024: Patient's previously discussed right-sided thyroid nodule returned with evidence of atypical cellularity and was considered genomic like suspicious. At 3.9 cm in greatest dimension I tried to provide a balanced view of patient's surgical options?specifically discussing proceeding with either right thyroid lobectomy with isthmusectomy versus total thyroidectomy. I discussed the surgery?specific risks of hypoparathyroidism and recurrent laryngeal nerve injury as fractional risks related to the extent of surgery. I went on to describe how loupe magnification and intraoperative nerve monitoring are used to mitigate these risks. Ultimately, I shared that I would favor right thyroid lobectomy with isthmusectomy given that we were not given a cancer diagnosis with his biopsy and I would favor trying to minimize his risk. However, I shared that FNA biopsy of his left thyroid nodule may move me to amend that recommendation to a total thyroidectomy if it were found to be suspicious. Therefore, I suggested we proceed with FNA of his subcentimeter TI-RADS 4 nodule in the left as a means of guiding our surgical planning. and Mrs. Judge had a number of questions but were otherwise in agreement and proceeded with their consent for the procedure which was undertaken uncomplicated fashion. Complete details are given in the procedures section of this note. Plan: ?Patient advised to apply ice to neck today. Use [id number] analgesia. Remove bandage later today ?Await cytopathology results and follow-up with patient for formulation of remainder of care plan. Tentatively plan for right thyroid lobectomy with isthmusectomy unless patient's biopsy from today comes back concerning for thyroid cancer I have examined the patient the following changes are noted: Patient biopsy results from the left sided FNA came back benign ([place] 2). Therefore, we confirmed plans to proceed with right thyroid lobectomy and isthmusectomy using intraoperative nerve monitoring. Patient denies any other health changes and an overview of the procedure and postoperative expectations was provided. All questions were answered from patient and his spouse. Will now proceed to the operating room for a right thyroid lobectomy and isthmusectomy with intraoperative nerve monitoring.
[2024-12-11] MEDS: Bupivacaine 0.25% 30 ML Vial (15:10)
--- NOTE | 2024-12-11 15:17 | PCM.OPRPT ---
Operative Report (Standard) Operative Information Date of Procedure: 12/11/24 Pre-Operative Diagnosis: Cystic right thyroid nodule suspicious by genomic sequencing Post-Operative Diagnosis: Same Surgery/Procedure Performed: Right thyroid lobectomy with isthmusectomy and intraoperative nerve monitoring health technician: Yes Heel Builder Machine: Tracie Ritchie Tasks completed by sales assistant displays: Opening & closing, Hemostasis: Electrocautery and Retracting Type of Anesthesia: General/Supplemental RN Documented Start/Stop Times: Operation Date: 12/11/24 11:00 Case Time Into Pre-Op 12/11/24 09:35 Out of Pre-Op 12/11/24 11:55 Anesthesia Start 12/11/24 12:03 Into Room 12/11/24 12:03 Procedure Start 12/11/24 12:52 Procedure End 12/11/24 15:17 Anesthesia End 12/11/24 15:38 Out of Room 12/11/24 15:38 Into Recovery 12/11/24 15:45 Into Phase II Recovery 12/11/24 16:45 Out of Recovery 12/11/24 16:45 Out of Phase II 12/11/24 20:38 Procedure Start Time: 12:52 Procedure Stop Time: 15:17 Select all DRAINS/GRAFTS/IMPLANTS that apply: None Estimated Blood Loss: 25 Specimen collected: Yes Description of specimen(s) removed: Right thyroid lobe and isthmus with stitch marking superior pole Description of surgery: After appropriate identification in the preoperative holding area, the patient was brought to the operating room where he was positioned supine on the operating room table. Induction of general endotracheal anesthetic was begun and a NIMS tube was placed under glidescope view to confirm coaptation with the vocal cords anteriorly. Tube was then secured and the patient was positioned with a shoulder roll so that his head was in extension but supported. The Nims electrodes were placed and connected to the monitor. We had appropriate resistance showing on the monitor and tapping at the level of the cricoid produce a graphical representation of the impulse on the monitor. Patient's neck was then prepped and draped in usual sterile fashion and a formal timeout was conducted from those present. The lowest skin fold to the sternal notch was selected for incision site (this resided approximately 2 fingerbreadths cephalad to the notch). An incision was extended for 2.5 cm on either side of midline. Electrocautery was used to deepen this incision through the level of the platysma. Subplatysmal flaps were raised with the use of electrocautery and blunt dissection. The strap muscles were then divided along the medial raphe bringing us down to the level of the thyroid. Capsular attachments to the thyroid were divided with the use of LigaSure or bluntly swept away. Retractors were placed to provide visualization of the right superior pole of the thyroid, but I found the superior pole extending out of view so gradual traction was placed inferiorly with [place] clamps on the gland but eventually I was able to visualize the polar vessels. These vessels of the superior pole were sequentially ligated with the use of the LigaSure device. As we moved towards the thyroid gland away from the pole vessels, we were careful to identify the superior parathyroid gland and preserve its vascular pedicle. We moved inferiorly and divided those polar vessels with LigaSure directly against the capsule to avoid risk of devascularizing the inferior parathyroid gland. However, the inferior parathyroid gland was not grossly visualized and this could be explained by the fact that the inferior pole of the right thyroid lobe abutted the clavicle (suggesting that the inferior parathyroid was intrathoracic and its position). With the poles freed the thyroid was mobilized medially. The anterior extent of our retraction was significantly limited by the overlying strap muscles so I chose to divide these muscles transversely between clamps using the LigaSure device and the superior one half of their extent. Retractors were replaced and I then bluntly the remaining strap muscle fibers from the thyroid capsule and using blunt dissection parallel to the presumed course of the recurrent laryngeal nerve, exposed the tracheoesophageal groove while elevating the gland anteriorly. Here I encountered a positive signal for the right recurrent laryngeal nerve and was shortly thereafter able to visualize the nerve. The nerve positively identified, I relieved the attachments of the thyroid gland to the underlying trachea with the use of LigaSure. Near the tubercle of [place]l the nerve proceeded more anteriorly than usual and there were several areas in the ligament of Bell region where the parenchyma created slings across the nerve. These attachments were approached with meticulous dissection and silk ties were used to create ligatures for this tissue. Prior to any tissue division the nerve was checked for its signal. Additionally as we again approached the nerve insertion of the cricothyroid membrane, I elected to leave a minuscule amount of thyroid tissue intact using 4-0 silk ligatures. Once I had assured clearance from the nerve, the remaining thyroid tissue was removed from the anterior surface of the trachea with electrocautery to include the entirety of the thyroid isthmus. In the most cephalad portion of the surgical bed there appeared to be a slight superior extension of thyroid tissue possibly representing a pyramidal lobe so this was taken en bloc with the specimen. Electrocautery was used to maintain hemostasis on the trachea. The specimen was divided across the isthmus with the LigaSure device for hemostasis. It was first oriented with placement of a suture through the superior pole then passed off the operative field for permanent section. Pressure was applied to the surgical cavity and there was some slight oozing along the anterior surface of the trachea well away from the recurrent laryngeal nerve where selective electrocautery was applied. Closer to the nerve there was some additional oozing and Surgicel hemostatic agent was placed while pressure was applied. Once this pressure was relieved, the surgical cavity was again inspected and we found hemostasis to be intact. We also again confirmed the presence of both the superior parathyroid gland as well as a well-functioning right recurrent laryngeal nerve. Satisfied with this result, the strap muscles were sewn back together with a running 3-0 Vicryl suture as well as closed in the midline with a second running 3-0 Vicryl stitch leaving a small gap at the inferior aspect of the suture line. The platysmal flaps were closed with interrupted 3-0 Vicryl. Some additional local anesthetic was infiltrated throughout the dermis (for a total volume instilled 14 mL) and the skin was closed in a subcuticular fashion using 4-0 Monocryl. Steri-Strips were applied. Telfa and Tegaderm were used as a dressing. The patient was then awakened from anesthetic without event and was taken to PACU for ongoing recovery. Surgical Findings: ? Supple right thyroid lobe with spongy consistency and loose attachments to surrounding structures ? Large right recurrent laryngeal nerve with numerous adhesive slings in the region of the ligament of Bell. Strong Nims signal ? Grossly intact right superior parathyroid gland Complications Complications: No Admit VTE Documentation VTE Mechan Device Prophylaxis: SCD's
--- NOTE | 2024-12-11 15:21 | DCINST_ITS ---
Discharge Instructions Diet Discharge Diet: No restrictions (However recommend a liquid to soft diet initially postoperatively) Activity Discharge Activity: May Not Drive (While it remains difficult to check blind spots quickly) May shower in (days): 2 Ice area for (Minutes): 20 Lifting Restrictions: No lifting greater than 15 pounds for 2 weeks after surgery Dressing / Incision Call your doctor if your incision/area has: Continuous Slow Oozing, Sudden Increased Bleeding, Increased Pain/ Swelling, Increased Redness and Swelling at the incision site Call your doctor if you observe: Numbness or Tingling Remove Dressing in: 2 days (Please leave Steri-Strips intact until they fall off spontaneously or are taken off at your follow-up visit) Cleanse incision/area with: Soap & Water Follow Up Care Please Follow Up With: Tyler Miles MD When: 7-10 days postop Test Results: Test results from this visit will be discussed in further detail at your follow- up appointment, if applicable. Discharge Plan Admission Primary Reason for Your Visit: Thyroid lobectomy Attending Provider: Tyler Miles Primary Care Provider: Margoth Hirsch Instructions Print Language: Ethiopian Discharge Orders/Prescriptions Prescriptions: Continued sacubitril-valsartan [Entresto] 24-26 mg tablet 1 tab PO BID allopurinol 300 mg tablet 300 mg PO QDAY aspirin 81 mg tablet,delayed release (DR/EC) 81 mg PO QDAY Other Ambulatory Orders: 12 Lead EKG (Routine) Location: None Selected Ordered By: Dr. Randall Hilario Referrals / Follow Up: Margoth Hirsch PA [Primary Care Provider] - Disposition Disposition (needs filled in before D/C Order can be placed): Home, Self Care
--- NOTE | 2024-12-11 15:52 | PCM.POST.ANE ---
Anesthesia: Postop Eval I Current Vital Signs Temperature: 97.6 F Pulse Rate: 84 Blood Pressure: 111/81 Respiratory Rate: 14 Pulse Ox: 96 Oxygen Delivery Method: Room Air Assessment Airway patent: Yes Spontaneous unlabored respirations: Yes Mental status: Awake and Calm nausea: No Vomiting: No Anesthesia Complication: No Fluid Hydration Crystalloid volume administer (ml): 700 Total IV fluid infused: 700 Progress Note Anesthesia document: Postop Eval 1 completed: Yes
[2024-12-11] MEDS: BENZOCAINE/MENTHOL 1 LOZENGE MUCOUS MEM ×2 (16:33→19:11)
[2024-12-11] MEDS: Acetaminophen 500 MG Tablet 1000 MG PO (19:05)
--- NOTE | 2024-12-12 08:04 | PCM.POSTANE2 ---
Anesthesia Postop Eval I Sum Postop Eval Completion status Anesthesia document: Postop Eval 1 completed: Yes Anesthesia Postop Eval I Summary Anesthesia Postop Eval I Summary: Anesthesia Postop Eval I: Assessment Summary Airway patent Yes 12/11/24 15:53 [email or web address] Spontaneous unlabored Yes 12/11/24 15:53 [email or web address] respirations Mental status Awake,Calm 12/11/24 15:53 [email or web address] nausea No 12/11/24 15:53 [email or web address] Vomiting No 12/11/24 15:53 [email or web address] Anesthesia Postop Eval I: Fluid Summary Crystalloid volume administer 700 12/11/24 15:53 [email or web address] (ml) Colloids volume administered ( ml) Blood Product volume administered (ml) Total IV fluid infused 700 12/11/24 15:53 [email or web address] Anesthesia Postop Eval I: Summary Notes Anesthesia Complication No 12/11/24 15:53 [email or web address] Anesthesia Complication Comment: Post-operative progress note Anesthesia: Postop Eval II Evaluation Mental status: Awake and Calm Pain Level: 1 nausea: No Vomiting: No Complications Anesthesia Complication: No
== END 2024-12-11 20:39 | disposition home or self-care (01) ==
LOC: SDC 09:27 → AC 09:28
PROVIDERS: Anesthesiology; PCP Physician Assistant; Referring Provider Surgery; Visit Provider Surgery
PROC: (CPT 60220; principal; 2024-12-11 10:45)
DX: D15.0 Benign neoplasm of thymus (principal); E04.1 Nontoxic single thyroid nodule; Z79.899 Other long term (current) drug therapy; Z79.82 Long term (current) use of aspirin
CPT/HCPCS: 60220; 36415; 80048; 84443; 85027; 88307; 93005; J2405

== ENCOUNTER → 2025-01-30 | Outpatient (CLI) | payer MEDICARE, SELFPAY ==
[2025-01-30 13:54] LABS: Free T3 2.5 pg/mL (2.18-3.98); T4 Total, Thyroxin 4.6 ug/dL (4.5-12.1)
== END | disposition home or self-care (01) ==
LOC: LAB 12:31
PROVIDERS: PCP Physician Assistant; Referring Provider Surgery; Visit Provider Surgery
DX: Z90.09 Acquired absence of other part of head and neck (principal); E04.2 Nontoxic multinodular goiter
CPT/HCPCS: 36415; 84436; 84443; 84481